=== PATIENT | female | born 1945 | race Caucasian/White ===

== ENCOUNTER 2017-07-09 23:39 | Inpatient (IN) ==
[2017-07-10 01:34] LABS: Basophils # 0.1 10*3/uL (0.0-0.2); Basophils % 0.4 % (0.0-0.8); Eosinophils % 0.1 % (0.00-10.9); Hematocrit 37.1 VOL% (35.7-47.0); Hemoglobin 12.9 GM/DL (12.0-16.0); Immature Granulocytes % 0.9 %; Immature Granulocytes Absolute 0.15 #; Lymphocytes # 1.2 10*3/uL (1.4-4.0); Lymphocytes % 7.8 % (21.3-54.2); Mean Corpuscular HGB Conc 34.8 GM/DL (32-36); Mean Corpuscular Hemoglobin 31 PG (27-34); Mean Corpuscular Volume 88.5 FL (87-102); Mean Platelet Volume 12.5 FL (9.6-12.0); Monocytes # 1.4 10*3/uL (0.11-0.8); Monocytes % 8.8 % (1.7-12.7); Neutrophils # 13.1 10*3/uL (1.4-7.4); Platelet Count 185 T/CUMM (130-400); Red Blood Count 4.19 MC/CUMM (3.8-5.5); Red Cell Distribution Width 13.3 % (9.3-17.3)
--- NOTE | 2017-07-10 01:52 | Emergency Department Note ---
Minor Reece Manpreet, am scribing for, and in the presence of, Vijay Contreras MD 01:20 . Diane Reece Hans, MD, personally performed the services described in this documentation, ascribed by Sae Gaxiola in my presence, and it is both accurate and complete . Arrival - Arrival ED Nursing Triage Note: C/O Neck pain radiating down right arm and into chest. Onset one week ago. Pt reports that she has also been running a fever off and on. Denies injury. Denies any other symptoms. Pt states that she has fibromyalgia. EKG was performed at time of triage. Mode of Arrival: Ambulatory Limitations: No Limitations Source: Patient - History of Present Illness Onset (ago): day(s) (Couple of days ago) Consistency: constant Severity: moderate Severity scale (1-10): 4 Quality: aching Date of Last Menstrual Period: Hysterectomy <Vijay Contreras - Last Filed: 07/10/17 01:52> <Shayan Graham - Last Filed: 07/10/17 04:33> - Arrival Chief Complaint: Neck Pain / Injury Stated Complaint: sob pain in neck and down arm Time Seen by Provider: 07/10/17 01:02 - History of Present Illness HPI Narrative: Pt is a 71 y/o female who presents to the ED with CC of right neck pain that radiates down into her chest and right arm that began a couple of days ago. Pt denies any falls or trauma but states the pain is worse on movement, swallowing , and touching. Pt also c/o wheezing. Pt denies any fever, Abd pain, or N/V/D, but states her Abd feels "tight" and a sore throat. No other pains/complaints to the ED. (Sae Gaxiola) Pt is a 71 y/o female who presents to the ED with CC of right neck pain that radiates down into her chest and right arm that began a couple of days ago. Pt denies any falls or trauma but states the pain is worse on movement, swallowing , and touching. Pt also c/o wheezing. Pt denies any fever, Abd pain, or N/V/D, but states her Abd feels "tight" and a sore throat. No other pains/complaints to the ED. (Vijay Contreras) Allergies/Adverse Reactions: Allergies Allergy/AdvReac Type Severity Reaction Status Date / Time Sulfa (Sulfonamide AdvReac Joint Pain Verified 07/19/15 09:39 Antibiotics) Home Medications: Home Medications Medication Instructions Recorded Confirmed Type Amlodipine Besylate 5 mg PO DAILY 06/30/15 07/09/17 History Estradiol [Vagifem] 10 mcg VAG DIRECTED 06/30/15 07/09/17 History Levothyroxine Tab [Synthroid Tab] 75 mcg PO DAILY@0700 06/30/15 07/09/17 History Nortriptyline HCl 10 mg PO DAILY 06/30/15 07/09/17 History SUMAtriptan TAB [Imitrex Tab] 100 mg PO DIRECTED 06/30/15 07/09/17 History Tolterodine LA [Detrol LA] 4 mg PO DAILY 06/30/15 07/09/17 History DULoxetine [Cymbalta] 30 mg PO QPM 07/09/17 07/09/17 History Duloxetine HCl [Cymbalta] 60 mg PO QAM 07/09/17 07/09/17 History Gabapentin Cap/Tab [Neurontin 600 mg PO DAILY 07/09/17 07/09/17 History Cap/Tab] Review of System - Review of System 12 point system: reviewed and no additional remarkable complaints except as stated - Review of System Constitutional: Absent: chills, diaphoresis, fever Head/Ears/Nose/Throat: Present: sore throat Respiratory: Present: wheezing. Absent: cough, respiratory distress Cardiovascular: Present: chest pain. Absent: palpitations, dyspnea on exertion Gastrointestinal: Absent: abdominal pain, nausea, vomiting, diarrhea Genitourinary female: Absent: dysuria Musculoskeletal: Present: neck pain (Right Neck pain). Absent: arm pain, back pain Neurological: Absent: headache, weakness, numbness, paresthesias <Vijay Contreras - Last Filed: 07/10/17 01:52> Medical,Surgical,& Family Hx - Medical History Cardio: History of: Hypertension Endocrine: History of: Thyroid Disorder No history of: Diabetes Mellitus (IDDM), Diabetes Mellitus (NIDDM) Respiratory: No history of: Asthma, Bronchitis, COPD Renal: No history of: Renal Failure, Renal Problems Gastrointestinal: History of: GI Problems (irritable bowel syndrome) No history of: Gastrointestinal Bleed, Liver Problems Musculoskeletal: History of: Back/Neck Problems, Herniated Disk - Social History Smoking Status: Never smoker Frequency of Alcohol Use: None Type of Drug Use: None <DianeVijay - Last Filed: 07/10/17 01:52> Exam - General General appearance: alert, in no apparent distress - Head Head exam: Present: atraumatic, normocephalic, normal inspection - Eye Eye exam: Present: normal appearance, PERRL, EOMI - ENT ENT exam: Present: normal exam, normal oropharynx, mucous membranes moist - Neck Neck exam: Present: full ROM, trachea midline, tenderness (Right neck tenderness ). Absent: normal inspection - Chest Chest inspection: Present: symmetric chest wall rise, tenderness (Right chest wall tenderness). Absent: normal inspection - Respiratory Respiratory exam: Present: normal lung sounds bilaterally. Absent: respiratory distress - Cardiovascular Cardiovascular exam: Present: regular rate, normal rhythm, normal heart sounds. Absent: murmur, rubs, gallop - Abdominal Exam Abdominal exam: Present: soft, normal bowel sounds - Extremities Exam Extremities exam: Present: normal inspection, full ROM. Absent: tenderness - Back Exam Back exam: Present: normal inspection, full ROM. Absent: tenderness - Neurological Exam Neurological exam: Present: alert, oriented X3, CN II-XII intact, reflexes normal - Psychiatric Psychiatric exam: Present: normal affect, normal mood - Skin Skin exam: Present: warm, dry, intact, normal color. Absent: pallor <DianeVijay - Last Filed: 07/10/17 01:52> Vital Signs: Vital Signs Temperature 98.7 F 07/10/17 00:40 Pulse Rate 62 07/10/17 01:51 Respiratory Rate 18 07/10/17 01:51 Blood Pressure 142/78 07/10/17 01:51 O2 Sat by Pulse Oximetry 98 07/10/17 01:51 Course <Vijay Contreras - Last Filed: 07/10/17 01:52> <Shayan Graham - Last Filed: 07/10/17 04:33> Course Narrative: The patient has a history of fever and has an elevated white blood cell count plus elevated inflammatory markers. CT scan shows inflammation of the right sternoclavicular joint which is tracking up the right side of the neck along the internal jugular vein and down into the chest and mediastinum along the subclavian vein. Therefore it seems reasonable that the patient should be admitted to the hospital for intravenous antibiotics orthopedic consultation to obtain a sample of the infection involving the sternoclavicular joint on the right side and infectious disease consultation for the appropriate antibiotic choice. (Shayan Graham) Results - Labs CBC & BMP: 07/10/17 01:13 Lab Results: I have reviewed the patients labs <Vijay Contreras - Last Filed: 07/10/17 01:52> - Labs CBC & BMP: 07/10/17 01:13 07/10/17 01:13 <Shayan Graham - Last Filed: 07/10/17 04:33> - Labs Labs: Laboratory Tests 07/10/17 01:13 WBC 16.0 H RBC 4.19 Hgb 12.9 Hct 37.1 MCV 88.5 MCH 31 MCHC 34.8 RDW 13.3 Plt Count 185 MPV 12.5 H Neut % (Auto) 82.0 H Lymph % (Auto) 7.8 L [place] % (Auto) 8.8 Eos % (Auto) 0.1 Baso % (Auto) 0.4 Neut # (Auto) 13.1 H Lymph # (Auto) 1.2 L [place] # (Auto) 1.4 H Eos # (Auto) 0.0 Baso # (Auto) 0.1 Immature Gran % 0.9 Nucleated RBC % 0.0 Immature Gran # 0.15 Nucleated RBCs # 0.00 Immature Plt Fraction 0.0 (Sae Gaxiola) Laboratory Tests 07/10/17 01:13 WBC 16.0 H RBC 4.19 Hgb 12.9 Hct 37.1 MCV 88.5 MCH 31 MCHC 34.8 RDW 13.3 Plt Count 185 MPV 12.5 H Neut % (Auto) 82.0 H Lymph % (Auto) 7.8 L [place] % (Auto) 8.8 Eos % (Auto) 0.1 Baso % (Auto) 0.4 Neut # (Auto) 13.1 H Lymph # (Auto) 1.2 L [place] # (Auto) 1.4 H Eos # (Auto) 0.0 Baso # (Auto) 0.1 Immature Gran % 0.9 Nucleated RBC % 0.0 Immature Gran # 0.15 Nucleated RBCs # 0.00 Immature Plt Fraction 0.0 (Vijay Contreras) Disposition <SamanthakrisVijay - Last Filed: 07/10/17 01:52> <Shayan Graham - Last Filed: 07/10/17 04:33> Clinical Impression: Septic arthritis of right sternoclavicular joint Disposition: Still a Patient Additional Instructions: The patient has a history of fever and has an elevated white blood cell count plus elevated inflammatory markers. CT scan shows inflammation of the right sternoclavicular joint which is tracking up the right side of the neck along the internal jugular vein and down into the chest and mediastinum along the subclavian vein. Therefore it seems reasonable that the patient should be admitted to the hospital for intravenous antibiotics orthopedic consultation to obtain a sample of the infection involving the sternoclavicular joint on the right side and infectious disease consultation for the appropriate antibiotic choice.
[2017-07-10 01:56] LABS: Blood Urea Nitrogen 14 MG/DL (7-18); Calcium 8.8 MG/DL (8.5-10.1); Glucose 114 MG/DL (74-106); Magnesium 2.3 MG/DL (1.8-2.4); Osmolality,Calculated 278.5 MOS/KG (273-304); Potassium 3.7 MMOL/L (3.5-5.1); Sodium 139 MMOL/L (136-145); Troponin I Only < 0.015 NG/ML (0.00-0.045)
[2017-07-10] MEDS ORDERED: MORPHINE 2 MG/1 ML SYRINGE IV STA (02:01)
[2017-07-10] MEDS ORDERED: KETOROLAC 30 MG/1 ML VIAL IV STA (02:01)
[2017-07-10] MEDS ORDERED: ONDANSETRON 4 MG/2 ML VIAL IV STA (02:01)
[2017-07-10] MEDS ORDERED: ONDANSETRON 4 MG/2 ML VIAL ONE (02:11)
[2017-07-10] MEDS ORDERED: KETOROLAC 30 MG/1 ML VIAL ONE (02:11)
[2017-07-10] MEDS ORDERED: MORPHINE 2 MG/1 ML SYRINGE ONE (02:11)
[2017-07-10] MEDS ORDERED: PIPERACILLIN/TAZOBACTAM 3,375 MG in SODIUM CHLORIDE 0.9% 100 ML IV STA (03:45)
[2017-07-10] MEDS ORDERED: VANCOMYCIN INJ 1,000 MG in SODIUM CHLORIDE 0.9% 250 ML IV STA (03:45)
[2017-07-10] MEDS ORDERED: PIPERACILLIN/TAZOBACTAM 3,375 MG VIAL IV ONE (03:49)
[2017-07-10] MEDS ORDERED: VANCOMYCIN 1,000 MG VIAL ONE (03:49)
--- NOTE | 2017-07-10 06:17 | Hospitalist History & Physical ---
History of Present Illness Chief complaint: right sided neck pain and arm pain History of present illness: Ms. Alvarez is a 71 year old female who presents with 3 days of right sided sharp neck pain with radiations to her right scapular area, right side of chest , and right arm. Pain is intermittent and occurs with movement. She notes some SOB/wheezing/non productive cough/fevers but no chills. Fever reported up to 100.9. Grandchildren have runny nose but nothing out of the ordinary. She has been having pain and difficulty swallowing since this timeframe as well. Odynophagia can occur with saliva/food/liquids. She denies any drooling. She further denies any abdominal pain/n,v/diarrhea. CTA chest showed findings suggestive of inflammatory or septic arthritis of the bilateral sternoclavicular joints, R>L. She denies any recent trauma or injury. She has not had these type of symptoms before. While in the ER, she was started on antibiotics. Home Medications Medication Instructions Recorded Confirmed Type Amlodipine Besylate 5 mg PO DAILY 06/30/15 07/09/17 History Estradiol [Vagifem] 10 mcg VAG DIRECTED 06/30/15 07/09/17 History Levothyroxine Tab [Synthroid Tab] 75 mcg PO DAILY@0700 06/30/15 07/09/17 History Nortriptyline HCl 10 mg PO DAILY 06/30/15 07/09/17 History SUMAtriptan TAB [Imitrex Tab] 100 mg PO DIRECTED 06/30/15 07/09/17 History Tolterodine LA [Detrol LA] 4 mg PO DAILY 06/30/15 07/09/17 History DULoxetine [Cymbalta] 30 mg PO QPM 07/09/17 07/09/17 History Duloxetine HCl [Cymbalta] 60 mg PO QAM 07/09/17 07/09/17 History Gabapentin Cap/Tab [Neurontin 600 mg PO DAILY 07/09/17 07/09/17 History Cap/Tab] Allergies Allergy/AdvReac Type Severity Reaction Status Date / Time Sulfa (Sulfonamide AdvReac Joint Pain Verified 07/19/15 09:39 Antibiotics) Medical,Surgical,& Family Hx - Medical History Cardio: History of: Hypertension Endocrine: History of: Thyroid Disorder No history of: Diabetes Mellitus (IDDM), Diabetes Mellitus (NIDDM) Respiratory: No history of: Asthma, Bronchitis, COPD Renal: No history of: Renal Failure, Renal Problems Gastrointestinal: History of: GI Problems (irritable bowel syndrome) No history of: Gastrointestinal Bleed, Liver Problems Musculoskeletal: History of: Back/Neck Problems, Herniated Disk - Social History Smoking Status: Never smoker Frequency of Alcohol Use: None Type of Drug Use: None 12 point system: reviewed and no additional remarkable complaints except as stated Exam - Constitutional Vitals: Period Temp Pulse Resp BP Sys/Douglas Pulse Ox Last 24 Hr 98.7 F-98.7 F 62-81 14-20 92-142/41-78 96-98 General appearance: normal weight, no acute distress - Head Head exam: Present: normal inspection, normocephalic - Eye Eye exam: Present: EOMI Pupils: Present: BRITTNEY - ENT ENT exam: Present: normal oropharynx (no tonsillar exudate; slight erythema of posterior oropharyngeal wall), other (right sided neck swelling and tenderness, normal ROM of neck but pain with movement) - Respiratory Respiratory exam: Present: clear to auscultation bilaterally, chest wall tenderness (right sided chest wall tenderness; no crepitus; no rash). Absent: rales, rhonchi, wheezes - Cardiovascular Cardiovascular exam: Present: regular rate and rhythm - GI/Abdominal GI/Abdominal exam: Present: normal bowel sounds, soft. Absent: tenderness - Extremities Exam Extremities exam: Present: other (normal ROM of UE; tenderness at GH joint and deltoid area of RUE). Absent: edema - Neurological Exam Neurological exam: Present: alert, oriented X3 - Psychiatric Psychiatric exam: Present: normal affect, normal mood - Skin Skin exam: Present: normal color, warm Results - Labs CBC & BMP: 07/10/17 01:13 07/10/17 01:13 - EKG EKG results: sinus rhythm (bigeminy) - Impressions Patient is a 71 yo female who presents with acute neck and chest pain was found to have inflammatory vs septic arthritis of sternoclavicular joints. Active Issues: 1. Arthropathy of sternoclavicular joint, infectious vs inflammatory 2. Possible Mediastinitis 3. RLL pneumonia 4. Dysphagia/odynophagia 5. Leukocytosis 6. Comorbid conditions: history of fibromyalgia, urge incontinence, hypothyroidism, postmenopausal, HTN home medications reconciled Plan: admit; continue zosyn and vancomycin; consult ID/ortho/GI. Check for strep /flu. Monitor wbc. check lactic acid/anti-ccp, rheumatoid factor. Add nebs. Provide pain control. IVFs. Check TSH. Continue home medications as appropriate. DVT prophylaxis. The plan of care may be modified as more information becomes available. - Diagnostic Findings Procedure: CT - chest: report reviewed by me (no PE; periarticular soft tissue swelling, inflammation and mild fluid along the bilateral sternoclavicular joints, right greater than left suggestive of inflammatory or septic arthritis. Mild fat stranding along the right thoracic inlet; right superior mediastinum and retrosternal fat suggesting possible developing mediastinitis. RLL pneumonia vs atelectasis. )
[2017-07-10] MEDS ORDERED: ALBUTEROL/IPRATROPIUM 3 ML NEB RESP TX PRN (06:45)
--- NOTE | 2017-07-10 06:57 | EKG Report ---
Stationary ECG Study [facility] ER Test Date: 07/10/2017 1:36:46 AM Pat Name: GENO GARAY Department: Room: Gender: F [employer]: : 1945 Requested by: Vijay Contreras Order Number: [id number] Reading MD: DAYANARA HERNANDEZ Intervals [place] Rate: 82 P: 68 NE: 154 QRS: -8 QRSD: 112 T: 78 QT: 368 QTc: 406 Interpretive Statements SINUS RHYTHM WITH FREQUENT VENTRICULAR PREMATURE COMPLEXES INDETERMINATE AXIS Electronically Signed On 07-10-17 16:01:29 CDT by DAYANARA HERNANDEZ [email or web address]
[2017-07-10] MEDS ORDERED: SODIUM CHLORIDE 0.9% 1,000 ML IV SCH (07:00)
--- NOTE | 2017-07-10 09:15 | Orthopedic Consult Note ---
History of Present Illness Chief complaint: right clavicle and neck pain History of present illness: Ms. Alvarez is a 71 year old female who presented to the ER with complaints of right neck and shoulder pain. She is a decreased range of motion of her neck. Complains of pain to her medial aspect of her shoulder only with range of motion. Denies any numbness or tingling. Denies any injuries. Denies any recent illnesses. No other complaints. Home Medications Medication Instructions Recorded Confirmed Type Amlodipine Besylate 5 mg PO BEDTIME 06/30/15 07/10/17 History Estradiol [Vagifem] 10 mcg VAG DIRECTED 06/30/15 07/10/17 History Levothyroxine Tab [Synthroid Tab] 75 mcg PO DAILY@0700 06/30/15 07/10/17 History Nortriptyline HCl 10 mg PO BEDTIME 06/30/15 07/10/17 History SUMAtriptan TAB [Imitrex Tab] 100 mg PO DIRECTED 06/30/15 07/10/17 History Tolterodine LA [Detrol LA] 4 mg PO BEDTIME 06/30/15 07/10/17 History DULoxetine [Cymbalta] 30 mg PO DAILY 07/09/17 07/10/17 History Duloxetine HCl [Cymbalta] 60 mg PO QAM 07/09/17 07/10/17 History Gabapentin Cap/Tab [Neurontin 600 mg PO BEDTIME 07/09/17 07/10/17 History Cap/Tab] Allergies Allergy/AdvReac Type Severity Reaction Status Date / Time Sulfa (Sulfonamide AdvReac Joint Pain Verified 07/19/15 09:39 Antibiotics) 12 point system: reviewed and no additional remarkable complaints except as stated - Constitutional Constitutional: Present: as per HPI Medical,Surgical,& Family Hx - Medical History Cardio: History of: Hypertension Endocrine: History of: Thyroid Disorder No history of: Diabetes Mellitus (IDDM), Diabetes Mellitus (NIDDM) Respiratory: No history of: Asthma, Bronchitis, COPD Renal: No history of: Renal Failure, Renal Problems Gastrointestinal: History of: GI Problems (irritable bowel syndrome) No history of: Gastrointestinal Bleed, Liver Problems Musculoskeletal: History of: Back/Neck Problems, Herniated Disk - Family History Family History: Reports;: Family Cancer (grandmother), Family Hypertension ( father), Family Stroke (mother) - Social History Smoking Status: Never smoker Frequency of Alcohol Use: None Type of Drug Use: None Exam - Constitutional Vitals: Period Temp Pulse Resp BP Sys/Douglas Pulse Ox Last 24 Hr 98.7 F-98.7 F 62-81 14-20 91-142/41-78 94-98 General appearance: normal weight, no acute distress - Head Head exam: Present: normal inspection - Eye Eye exam: Present: EOMI Pupils: Present: BRITTNEY - ENT ENT exam: Present: normal exam - Neck Neck exam: Present: normal inspection (Tender to palpation along the right side of the anterior neck. Mild pain with passive range of motion) - Respiratory Respiratory exam: Absent: accessory muscle use, wheezes - Cardiovascular Cardiovascular exam: Present: regular rate and rhythm - GI/Abdominal GI/Abdominal exam: Absent: distended, firm - Extremities Exam Extremities exam: Present: normal inspection - Expanded Right Upper Extremity General: Present: normal inspection (Right shoulder: Good active range of motion. Pain to sternoclavicular joint with crossarm test. Compartments are soft. Sensation is intact. Pulses 2+. Mild swelling of the right sternoclavicular joint mild increased warmth over this area) Left Upper Extremity General: Present: normal inspection (Minimal tenderness to the left sternoclavicular joint. Minimal pain with crossarm test. Otherwise full active range of motion. Compartments soft. Sensation is intact. Pulses 2+.) - Neurological Exam Neurological exam: Present: alert, oriented X3, CN II-XII intact - Psychiatric Psychiatric exam: Present: normal affect, normal mood - Skin Skin exam: Present: normal color, intact Results - Labs CBC & BMP: 07/10/17 01:13 07/10/17 01:13 Lab Results: I have reviewed the past 24 hour labs - Diagnostic Findings Procedure: CT - chest: image reviewed by me, CT: image reviewed by me Assessment and Plan (1) Septic arthritis of right sternoclavicular joint Status: Acute Assessment and plan: Discussed her CT findings and physical exam concerning for inflammation of her right sternal clavicular joint. Discussed the possibility of this being infectious or inflammatory in etiology. Recommend further workup with interventional radiology guided aspiration of the right sternal clavicular joint to further evaluate the source for her pain and swelling. Discussed that if she were need to undergo surgical intervention, it would most likely need to be done with a combination of general surgeon and orthopedic surgeon Continue current treatment as per medicine with antibiotics and pain medicine as appropriate We will continue to follow Current Visit: Yes
[2017-07-10] MEDS: TOLTERODINE LA 4 MG CAPSULE PO SCH (10:11)
[2017-07-10] MEDS: GABAPENTIN 600 MG TABLET PO SCH (10:12)
[2017-07-10] MEDS: NORTRIPTYLINE 10 MG CAPSULE PO SCH (10:13)
[2017-07-10] MEDS: LEVOTHYROXINE 75 MCG TABLET PO SCH (10:13)
[2017-07-10] MEDS: ENOXAPARIN 40 MG/0.4 ML SYRINGE SUBCUT SCH (10:14)
--- NOTE | 2017-07-10 10:28 | CT Report ---
Exam: CT neck with IV contrast Exam date: July 10, 2017 Clinical History: 71-year-old female with neck and throat pain Technique: Axial computed tomography images of the neck with intravenous contrast. The CT exam was performed using one or more of the following dose reduction techniques: Automated exposure control, adjustment of the mA and/or kV according to patient size, or use of iterative reconstruction technique. Contrast: 80 mL of Omnipaque 350 administered intravenously Comparison: No relevant prior studies available Findings: Nasopharynx: Unremarkable Oropharynx: Unremarkable. No significant tonsillar enlargement. No peritonsillar abscess Hypopharynx: Partial effacement of the right piriform recess Larynx: Unremarkable. Normal epiglottis Trachea: Unremarkable Retropharyngeal space: Unremarkable Submandibular/parotid glands: Unremarkable. Normal in size, symmetry and enhancement Thyroid: Unremarkable Bone/joints: Cervical spondylosis Soft tissues: Periarticular soft tissue swelling, inflammation and small fluid along the bilateral sternoclavicular joints, right greater than left. Mild soft tissue swelling extending into the lower right neck and right thoracic inlet Vasculature: Unremarkable Lymph nodes: No enlarged lymph nodes Lung apices: Mild biapical fibrosis Impression: 1. Inflammatory changes involving the bilateral sternoclavicular joints, right greater than left. Differential considerations would include inflammatory versus septic arthritis. Correlate clinically PROCEDURE INTERPRETED AT [facility] [place] DEPARTMENT OF RADIOLOGY Final Report Signed by: Luis Carlos Haq
--- NOTE | 2017-07-10 10:35 | CT Report ---
Exam: CT angiography chest without and with intravenous contrast Exam date: July 10, 2017 at 0221 hours Clinical History: 71-year-old female, chest pain, not specified Technique: Axial computed tomographic angiography images of the chest without and with intravenous contrast using pulmonary embolism protocol. The CT exam was performed using one or more of the following dose reduction techniques: Automated exposure control, adjustment of the mA and/or kV according to patient size, or use of iterative reconstruction technique. Contrast: 80 mL of Omnipaque 350 administered intravenously Comparison: No relevant comparison studies available Findings: Pulmonary arteries: No vascular intraluminal filling defects to suggest pulmonary embolism Aorta: No dissection or thoracic aortic aneurysm Lungs: Subtle right lower lobe pneumonia versus atelectasis. Mild biapical scarring. Right middle lobe granuloma Pleural spaces: Trace right pleural effusion. No pneumothorax Heart: Heart size is normal Mediastinum: Mild fat stranding along the right thoracic inlet, right superior mediastinum and retrosternal fat suggesting underlying mediastinitis Bones/joints: Mild thoracic kyphosis with spondylosis throughout the spinal axis. No acute fracture. No dislocation. Soft tissues: Periarticular soft tissues swelling with inflammation and trace fluid involving the bilateral sternoclavicular joints, right greater than left. Stranding extends into the upper anterior chest and within the lower right neck. Lymph nodes: No enlarged lymph nodes Impression: 1. No evidence of pulmonary embolism 2. Periarticular inflammatory changes involving the sternoclavicular joints bilaterally, right greater than left suggesting inflammatory or septic arthrosis 3. Findings to suggest developing mediastinitis 4. Right lower lobe atelectasis versus early infectious process 5. Trace right pleural effusion PROCEDURE INTERPRETED AT [facility] DEPARTMENT OF RADIOLOGY Final Report Signed by: Luis Carlos Haq
--- NOTE | 2017-07-10 10:58 | XRay Report ---
2 view chest July at 0132 hours Indication: Shortness of breath Comparison: None available Findings: Cardiomediastinal contours are normal. Lungs are clear bilaterally. No acute osseous abnormalities. Visualized upper abdomen demonstrates no acute pathology. Impression: Normal chest PROCEDURE INTERPRETED AT [facility] DEPARTMENT OF RADIOLOGY Final Report Signed by: Luis Carlos Haq
--- NOTE | 2017-07-10 11:20 | Gastrointestinal Consult Note ---
Assessment and Plan - Time spent with patient Time spent with patient: Greater than 30 minutes (1) Odynophagia Status: Acute Current Visit: Yes (2) Septic arthritis of right sternoclavicular joint Status: Acute Assessment and plan: PLEASE NOTE -- automatic citation of patient information is unavoidable in this electronic note. I have made a reasonable effort to review the information cited , but it is not a part of my evaluation, impression, or recommendation unless specifically discussed in the dictated text that follows. As well, voice recognition software was used in the creation of this clinical note. Reasonable effort was made to identify and correct gross errors. Despite proofreading, errors in charging manipulator may be present, including nonsense verbiage at times. If you encounter such an error, please contact me at for discussion and correction. -- Dr. Pruett Chief complaint/Consult Question: Odynophagia Consult requested by: Juan F History of present illness: This is a new patient, a 71-year-old woman with underlying spinal stenosis and fibromyalgia, not on any immunosuppressants, presenting with right neck pain. Patient states she initially had some tenderness of the tailbone, developed sinus congestion, and developed a sore throat on the right side of the neck with painful swallowing. Symptoms progressed to include pain on bilateral sides of the clavicle, radiating to the central anterior chest, and developed into audible wheezing, with progressively worsening shortness of breath, associated with mild cough. This is also associated with current pill dysphasia. Patient denies any prior dysphasia, odynophagia, immunosuppressant medications, immunocompromise state. Denies any family history of autoimmune diseases. Grandmother with stomach cancer late 60s. Sister with melanoma at age 69. Denies oral ulcerations or pain in the mouth. She has had no other recent infections, has had 3 surgeries to her low back and neck over the last 2 years, but states that they were laser surgeries where they broke the skin, but otherwise not tissue planes without hardware. GI review of systems included: heartburn, regurgitation, early satiety, dysphagia, odynophagia, abdominal pain, nausea, vomiting, hematemesis, weight loss, weight gain, fever, chills, fatigue, decreased appetite, diarrhea, constipation, hematochezia, melena, bloating, malodorous flatus, anal pain, or NSAID use, and was negative except as noted above. REVIEW OF SYSTEMS: Complete other review of systems negative except as noted in the HPI. Outpatient medications: Personally reviewed Cymbalta twice daily, Neurontin, nortriptyline, levothyroxine, Detrol LA, amlodipine Inpatient medications: Reviewed Past Medical History: Reviewed Social history: Negative tobacco. Negative alcohol Family history: Grandmother with stomach cancer in late 60s, sister with melanoma age 69 PHYSICAL EXAMINATION: CONSTITUTIONAL: Vital signs reviewed as documented above. In no acute distress. Nontoxic-appearing. EYES: Anicteric conjunctiva. Extra-ocular movements are intact and symmetric. EARS: Able to hear speech at conversational volume level, no external trauma/ masses. MOUTH: No oral/mouth lesions or ulcers. NECK: Right anterior and lateral neck very tender to palpation, shotty lymphadenopathyincluding the anterior and posterior cervical chain on the right side, sensation of engorgement or swelling, without overlying cellulitis or discrete masses. Thyroid is of normal size and symmetric. HEART: Regular rate, regular rhythm LUNGS:. No increased work of breathing or accessory muscle use. GI/ABDOMEN: Nonobese abdomen, soft, nontender to palpation, no rebound tenderness, nondistended, no rigidity. No palpable mass. No appreciable hepatosplenomegaly. SKIN: No rash on face, arms, or hands. No palpable lesions MUSCULOSKELETAL: Normal gait. Muscle tone appears normal without any abnormal movements. PSYCH: Normal affect. Alert and oriented to person, place, and time. Laboratory: Personally reviewed CBC with WBC 16, hemoglobin 12.9, platelets 185 Chemistry within normal limits Troponin negative CRP significantly elevated at 25 Radiology: Personally reviewed reports CT chest from 07/10/17. Significant for periarticular inflammatory changes involving the sternoclavicular joints bilaterally, right greater than left suggesting inflammatory or septic arthrosis. Findings suggestive of developing mediastinitis. Right lower lobe atelectasis from his early infectious process. Trace right pleural effusion. CT neck from 07/10/2017inflammatory changes involving the bilateral sternoclavicular joints right greater than left as seen on CT. Mild soft tissue swelling extending into the lower right neck and right thoracic inlet. Procedurespatient reports prior EGD approximately 15-20 years ago with hiatal hernia Colonoscopy reported 4 years ago, was told to repeat in 5 years Assessments: #Septic versus inflammatory arthrosis of the sternoclavicular joints with findings of inflammation versus infection in the right neck as well #odynophagia with pill dysphagia: Acute. Most likely related to infectious versus inflammatory findings as noted above. No indication that this is related to chronic or underlying esophageal disorder. #Other specified counseling -- The patient was seen for greater than 30 minutes. The patient was counseled for greater than 50% of this time regarding differential diagnosis, likely diagnosis, diagnostic and therapeutic alternatives, risks/benefits/alternatives of medications and procedures, and plan of care generally. The patient expressed understanding and wishes to proceed. Recommendations: -HIV-ordered -If patient has persistent dysphasia or odynophagia after current issues treated , recommend outpatient referral for EGD GI has no further recommendations at this time, and will sign off. Please call with further questions. Keira Pruett MD, MPH STAFF [employer] Current Visit: Yes History of Present Illness History of present illness: Ms. Alvarez is a 71 year old female Home Medications Medication Instructions Recorded Confirmed Type Amlodipine Besylate 5 mg PO BEDTIME 06/30/15 07/10/17 History Estradiol [Vagifem] 10 mcg VAG DIRECTED 06/30/15 07/10/17 History Levothyroxine Tab [Synthroid Tab] 75 mcg PO DAILY@0700 06/30/15 07/10/17 History Nortriptyline HCl 10 mg PO BEDTIME 06/30/15 07/10/17 History SUMAtriptan TAB [Imitrex Tab] 100 mg PO DIRECTED 06/30/15 07/10/17 History Tolterodine LA [Detrol LA] 4 mg PO BEDTIME 06/30/15 07/10/17 History DULoxetine [Cymbalta] 30 mg PO DAILY 07/09/17 07/10/17 History Duloxetine HCl [Cymbalta] 60 mg PO QAM 07/09/17 07/10/17 History Gabapentin Cap/Tab [Neurontin 600 mg PO BEDTIME 07/09/17 07/10/17 History Cap/Tab] Allergies Allergy/AdvReac Type Severity Reaction Status Date / Time Sulfa (Sulfonamide AdvReac Joint Pain Verified 07/19/15 09:39 Antibiotics) Medical,Surgical,& Family Hx - Medical History Cardio: History of: Hypertension Endocrine: History of: Thyroid Disorder No history of: Diabetes Mellitus (IDDM), Diabetes Mellitus (NIDDM) Respiratory: No history of: Asthma, Bronchitis, COPD Renal: No history of: Renal Failure, Renal Problems Gastrointestinal: History of: GI Problems (irritable bowel syndrome) No history of: Gastrointestinal Bleed, Liver Problems Musculoskeletal: History of: Back/Neck Problems, Herniated Disk - Family History Family History: Reports;: Family Cancer (grandmother), Family Hypertension ( father), Family Stroke (mother) - Social History Smoking Status: Never smoker Frequency of Alcohol Use: None Type of Drug Use: None Exam - Constitutional Vitals: Period Temp Pulse Resp BP Sys/Douglas Pulse Ox Last 24 Hr 98.6 F-98.7 F 62-82 14-20 91-157/41-92 94-98 Results - Labs CBC & BMP: 07/10/17 01:13 07/10/17 01:13
--- NOTE | 2017-07-10 11:49 | Event Note ---
Pt was seen and examined by me. Agree with plan as delinated in H and P. F/U analysis consultant recs. Add Magic mouthwash swish and spit as needed. D/W pt and . All questions answered.
[2017-07-10] MEDS ORDERED: MYLANTA/LIDO VISC/NYST 180 ML BOTTLE SWISH/SPIT PRN (12:40)
--- NOTE | 2017-07-10 13:48 | EKG Report ---
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
[2017-07-10] MEDS: PIPERACILLIN/TAZOBACTAM 3,375 MG in SODIUM CHLORIDE 0.9% 100 ML IV SCH ×2 (15:43→21:54)
[2017-07-10] MEDS: MORPHINE 2 MG/1 ML SYRINGE IV PRN (17:19)
[2017-07-10] MEDS ORDERED: DULoxetine 30 MG CAPSULE PO SCH (19:00)
[2017-07-10] MEDS: VANCOMYCIN INJ 1,000 MG in SODIUM CHLORIDE 0.9% 250 ML IV SCH (19:38)
[2017-07-10] MEDS: DULoxetine 30 MG CAPSULE PO SCH (21:18)
[2017-07-11] MEDS ORDERED: SODIUM CHLORIDE 0.9% 250 ML IV ONE (03:17)
[2017-07-11] MEDS: VANCOMYCIN INJ 1,000 MG in SODIUM CHLORIDE 0.9% 250 ML IV SCH ×2 (04:01→16:47)
[2017-07-11 04:32] LABS: Basophils % 0.4 % (0.0-0.8); Eosinophils % 0.1 % (0.00-10.9); Hematocrit 33.6 VOL% (35.7-47.0); Hemoglobin 11.1 GM/DL (12.0-16.0); Immature Granulocytes % 0.6 %; Immature Granulocytes Absolute 0.06 #; Lymphocytes # 0.9 10*3/uL (1.4-4.0); Lymphocytes % 9.4 % (21.3-54.2); Mean Corpuscular Hemoglobin 30 PG (27-34); Mean Corpuscular Volume 89.6 FL (87-102); Mean Platelet Volume 12.5 FL (9.6-12.0); Monocytes % 10.7 % (1.7-12.7); Neutrophils # 7.6 10*3/uL (1.4-7.4); Neutrophils % 78.8 % (38.7-73.9); Platelet Count 191 T/CUMM (130-400); Red Blood Count 3.75 MC/CUMM (3.8-5.5); Red Cell Distribution Width 13.5 % (9.3-17.3); White Blood Count 9.6 T/CUMM (4-12)
[2017-07-11 05:08] LABS: Blood Urea Nitrogen 11 MG/DL (7-18); Calcium 7.7 MG/DL (8.5-10.1); Glucose 104 MG/DL (74-106); Magnesium 2.2 MG/DL (1.8-2.4); Osmolality,Calculated 279.3 MOS/KG (273-304); Rheumatoid Factor < 15 IU/ML (<15); Sodium 141 MMOL/L (136-145)
[2017-07-11] MEDS: PIPERACILLIN/TAZOBACTAM 3,375 MG in SODIUM CHLORIDE 0.9% 100 ML IV SCH ×3 (06:15→20:25)
[2017-07-11] MEDS: LEVOTHYROXINE 75 MCG TABLET PO SCH (06:31)
[2017-07-11 07:30] LABS: HIV Antigen/Antibody Result Nonreactive (Nonreactive)
[2017-07-11] MEDS: GABAPENTIN 600 MG TABLET PO SCH (08:47)
[2017-07-11] MEDS: ENOXAPARIN 40 MG/0.4 ML SYRINGE SUBCUT SCH (08:47)
[2017-07-11] MEDS: TOLTERODINE LA 4 MG CAPSULE PO SCH (08:47)
[2017-07-11] MEDS: NORTRIPTYLINE 10 MG CAPSULE PO SCH (08:48)
--- NOTE | 2017-07-11 12:56 | Orthopedic Consult Note ---
History of Present Illness Chief complaint: feeling better today History of present illness: Ms. Alvarez is a 71 year old female admitted for concern of septic arthropathy of her right greater than left sternoclavicular joint with swelling and her right-sided neck. She states that she feels better today and has better range of motion of her shoulder. is in the room at bedside. Also states that she had lower back pain a couple of weeks ago but that it has resolved Home Medications Medication Instructions Recorded Confirmed Type Amlodipine Besylate 5 mg PO BEDTIME 06/30/15 07/10/17 History Estradiol [Vagifem] 10 mcg VAG DIRECTED 06/30/15 07/10/17 History Levothyroxine Tab [Synthroid Tab] 75 mcg PO DAILY@0700 06/30/15 07/10/17 History Nortriptyline HCl 10 mg PO BEDTIME 06/30/15 07/10/17 History SUMAtriptan TAB [Imitrex Tab] 100 mg PO DIRECTED 06/30/15 07/10/17 History Tolterodine LA [Detrol LA] 4 mg PO BEDTIME 06/30/15 07/10/17 History DULoxetine [Cymbalta] 30 mg PO DAILY 07/09/17 07/10/17 History Duloxetine HCl [Cymbalta] 60 mg PO QAM 07/09/17 07/10/17 History Gabapentin Cap/Tab [Neurontin 600 mg PO BEDTIME 07/09/17 07/10/17 History Cap/Tab] Allergies Allergy/AdvReac Type Severity Reaction Status Date / Time Sulfa (Sulfonamide AdvReac Joint Pain Verified 07/19/15 09:39 Antibiotics) 12 point system: reviewed and no additional remarkable complaints except as stated Medical,Surgical,& Family Hx - Medical History Cardio: History of: Hypertension Endocrine: History of: Thyroid Disorder No history of: Diabetes Mellitus (IDDM), Diabetes Mellitus (NIDDM) Respiratory: No history of: Asthma, Bronchitis, COPD Renal: No history of: Renal Failure, Renal Problems Gastrointestinal: History of: GI Problems (irritable bowel syndrome) No history of: Gastrointestinal Bleed, Liver Problems Musculoskeletal: History of: Back/Neck Problems, Herniated Disk - Family History Family History: Reports;: Family Cancer (grandmother), Family Hypertension ( father), Family Stroke (mother) - Social History Smoking Status: Never smoker Frequency of Alcohol Use: None Type of Drug Use: None Exam - Constitutional Vitals: Period Temp Pulse Resp BP Sys/Douglas Pulse Ox Last 24 Hr 97.0 F-98.7 F 56-86 18-22 109-135/58-63 20-98 - Head Head exam: Present: normal inspection, normocephalic, atraumatic - Eye Eye exam: Present: EOMI Pupils: Present: BRITTNEY - ENT ENT exam: Present: normal exam - Neck Neck exam: Present: other (Improved active range of motion. Mild swelling and tenderness right lower neck) - Respiratory Respiratory exam: Absent: accessory muscle use, wheezes - Cardiovascular Cardiovascular exam: Present: regular rate and rhythm - GI/Abdominal GI/Abdominal exam: Absent: distended, firm - Extremities Exam Extremities exam: Present: normal inspection (Right shoulder: Improved active range of motion right upper extremity. Mild-mod tenderness to palpation to right sternoclavicular joint. Sensation is intact. Pulses 2+. Capillary refill brisk. Compartments are soft) - Expanded Left Upper Extremity General: Present: normal inspection (Minimal tenderness to palpation left acromioclavicular joint. Full active range of motion. Compartments are soft. Sensations intact. Pulses 2+) - Neurological Exam Neurological exam: Present: alert, oriented X3, CN II-XII intact - Psychiatric Psychiatric exam: Present: normal affect, normal mood - Skin Skin exam: Present: normal color Results - Labs CBC & BMP: 07/11/17 03:58 07/11/17 03:58 Lab Results: I have reviewed the past 24 hour labs - Diagnostic Findings Procedure: CT: image reviewed by me, report reviewed by me, X-ray: image reviewed by me, report reviewed by me Assessment and Plan (1) Septic arthritis of right sternoclavicular joint Status: Acute Assessment and plan: Discussed her condition and that based on her labs it appears that she is in physical exam findings, she is improving. Discussed her blood cultures. Discussed the consultation for interventional radiology to obtain a sample of fluid from either her neck or her sternoclavicular joint to determine the etiology and possibility of septic arthropathy Discussed that if she does have a abscess of her neck and/or septic arthropathy of her sternoclavicular joints, that this may need to be a combined surgical procedure with a team approach of a ear nose and throat surgeon, general surgeon , and orthopedics. Further treatment plan pending the results of the interventional radiology aspiration Continue medical management as per medicine Current Visit: Yes
--- NOTE | 2017-07-11 14:49 | Hospitalist Progress Note ---
Assessment and Plan (1) Septic arthritis of right sternoclavicular joint Status: Acute Assessment and plan: The patient is receiving [id number] IV antibiotics. We await the identity and sensitivities of this gram-positive coccus, and note that the PCR for MRSA was negative. I am uncertain the etiology of the patient's apparently infected sternoclavicular joint but I am concerned it could be related to epidural steroid injections which she is received in the past. She states her last cervical injection was in November 2016. I am going to order MRI scan of cervical thoracic and lumbar spines to rule out paraspinous abscess. We will continue present antibiotic coverage and look forward to consultation with Dr. Baca tomorrow. Current Visit: Yes Hospitalist: Subjective Interval history: This patient is admitted to the hospital with evidence of septicemia with gram- positive cocci. The patient has inflammation of bilateral sternoclavicular joints with worse stranding on the right on MR scan and possibly early mediastinitis is seen. The patient states that her symptoms are improving on present therapy including Zosyn and vancomycin. Micro testing shows PCR negative for MRSA. The patient states she sees some visual disturbance today which is new. She states that the wallpaper pattern seems to be scintigraphic. The patient denies hallucinations. The patient states she has not had these symptoms in the past. The patient has required doses of narcotic pain medication and antiemetic to treat her pain symptom. Exam - Constitutional Vitals: Period Temp Pulse Resp BP Sys/Douglas Pulse Ox Last 24 Hr 97.0 F-98.7 F 56-86 18-22 109-135/58-63 20-98 General appearance: mild distress - Respiratory Respiratory exam: Present: clear to auscultation bilaterally - Cardiovascular Cardiovascular exam: Present: regular rate and rhythm - GI/Abdominal GI/Abdominal exam: Present: normal bowel sounds Results - Labs CBC & BMP: 07/11/17 03:58 07/11/17 03:58 Lab Results: I have reviewed the past 24 hour labs
[2017-07-11] MEDS: MORPHINE 2 MG/1 ML SYRINGE IV PRN (16:40)
[2017-07-11] MEDS: DULoxetine 30 MG CAPSULE PO SCH (20:25)
[2017-07-11] MEDS ORDERED: NORTRIPTYLINE 10 MG CAPSULE PO SCH (21:00)
[2017-07-12] MEDS: VANCOMYCIN INJ 1,000 MG in SODIUM CHLORIDE 0.9% 250 ML IV SCH ×2 (03:40→16:25)
[2017-07-12] MEDS: PIPERACILLIN/TAZOBACTAM 3,375 MG in SODIUM CHLORIDE 0.9% 100 ML IV SCH ×2 (04:30→14:05)
[2017-07-12] MEDS: MORPHINE 2 MG/1 ML SYRINGE IV PRN (05:31)
[2017-07-12] MEDS: LEVOTHYROXINE 75 MCG TABLET PO SCH (06:25)
--- NOTE | 2017-07-12 07:23 | Orthopedic Progress Note ---
Orthopedics - Subjective Interval history: 71 yo female who has been admitted with a neck and sternoclavicular pain right greater than left, leukocytosis, elevated CRP, and a GPC bacteremia. She is set up for a SC aspiration this am. Generally, she is feeling better although this morning she is more uncomfortable. No numbness or tingling. She has been scheduled for an aspiration with interventional radiology today. She also has MRIs of her CTLS spine ordered. 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 Her has had a recent history of an MRSA abscess secondary to presumed insect bite. Patient has chronic neck and low back pain and history of fibromyalgia. She has been afebrile since admission. Exam shows active abduction and forward elevation to 90. She is diffusely tender across her shoulder girdle and right side of her neck. She is tender over her right sternoclavicular joint and distal sternocleidomastoid muscle. She has mild warmth, mild edema and very faint erythema. No obvious fluctuance or induration. She has multiple healing pustules around her right thumb and distal fingers which she states are from fire ant bites. The palpable radial pulse. She has full hand wrist range of motion. 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 Her CT scans were reviewed and show degenerative changes at her SC joints. Small fluid collections around bilateral sc joints, right greater than left. Her leukocytosis has improved. Her blood PCR is negative for MRSA. Impression: Possible right greater than left SC septic arthritis. Gram- positive bacteremia. Plan: Agree with infectious disease consultation and aspiration. Contemplate irrigation and debridement if she fails to respond to antibiotics. Exam - Constitutional Vitals: Period Temp Pulse Resp BP Sys/Douglas Pulse Ox Last 24 Hr 96.9 F-97.9 F 56-92 16-20 109-149/57-87 90-96 Results - Labs CBC & BMP: 07/12/17 07:36 07/11/17 03:58
[2017-07-12] MEDS: GABAPENTIN 600 MG TABLET PO SCH ×2 (07:41→08:53)
[2017-07-12] MEDS: TOLTERODINE LA 4 MG CAPSULE PO SCH ×2 (07:41→08:53)
[2017-07-12 07:44] LABS: Basophils # 0.1 10*3/uL (0.0-0.2); Basophils % 0.7 % (0.0-0.8); Eosinophils # 0.1 10*3/uL (0.0-0.87); Eosinophils % 0.7 % (0.00-10.9); Hematocrit 34.6 VOL% (35.7-47.0); Hemoglobin 11.5 GM/DL (12.0-16.0); Immature Granulocytes % 0.6 %; Immature Granulocytes Absolute 0.04 #; Lymphocytes # 0.9 10*3/uL (1.4-4.0); Lymphocytes % 13.4 % (21.3-54.2); Mean Corpuscular HGB Conc 33.2 GM/DL (32-36); Mean Corpuscular Hemoglobin 30 PG (27-34); Mean Corpuscular Volume 90.1 FL (87-102); Mean Platelet Volume 11.6 FL (9.6-12.0); Monocytes # 0.8 10*3/uL (0.11-0.8); Monocytes % 12.2 % (1.7-12.7); Neutrophils # 4.9 10*3/uL (1.4-7.4); Neutrophils % 72.4 % (38.7-73.9); Platelet Count 207 T/CUMM (130-400); Red Blood Count 3.84 MC/CUMM (3.8-5.5); Red Cell Distribution Width 13.6 % (9.3-17.3); White Blood Count 6.7 T/CUMM (4-12)
--- NOTE | 2017-07-12 08:34 | Hospitalist Progress Note ---
<Bety Chingda - Last Filed: 07/12/17 10:35> Assessment and Plan - Time spent with patient Time spent with patient: Less than 30 minutes (1) Septic arthritis of right sternoclavicular joint Status: Acute Assessment and plan: SC aspiration scheduled this a.m. per orthopedics. We will continue intravenous antibiotic coverage and rehydration as previously ordered. We will await orthopedics recommendation for further direction. Current Visit: Yes Hospitalist: Subjective Interval history: Patient seen and examined; chart reviewed. No significant overnight events reported per staff. Patient reports continuous pain affecting the right arm, neck, and chest wall. The patient is n.p.o. pending SC aspiration this a.m. Exam - Constitutional Vitals: Period Temp Pulse Resp BP Sys/Douglas Pulse Ox Last 24 Hr 96.9 F-97.9 F 56-92 16-20 109-169/57-87 90-96 General appearance: normal weight, mild distress - Head Head exam: Present: normal inspection, normocephalic, atraumatic - Eye Eye exam: Present: EOMI. Absent: conjunctival injection Pupils: Present: BRITTNEY, normal accommodation - ENT ENT exam: Present: normal exam, normal external ear exam, normal oropharynx - Neck Neck exam: Present: normal inspection, tenderness - Respiratory Respiratory exam: Present: clear to auscultation bilaterally. Absent: rales, rhonchi, stridor, wheezes - Cardiovascular Cardiovascular exam: Present: regular rate and rhythm. Absent: carotid bruit, diastolic murmur, gallop, JVD, rubs, systolic murmur - GI/Abdominal GI/Abdominal exam: Present: normal bowel sounds, soft - Extremities Exam Extremities exam: Present: normal inspection, normal capillary refill, full ROM. Absent: edema - Expanded Right Upper Extremity General: Present: normal inspection Shoulder exam: Present: normal inspection, tenderness Upper Arm exam: Present: tenderness Elbow exam: Present: normal inspection Forearm wrist exam: Present: normal inspection Neuro motor exam: Present: fingers 2-5 abduction intact Neurosensory exam: Present: 2-point discrimination, median nerve intact, radial nerve intact, ulnar nerve intact Vascular: Present: normal capillary refill. Absent: vascular compromise Left Upper Extremity General: Present: normal inspection Shoulder exam: Present: normal inspection Upper Arm exam: Present: normal inspection Elbow exam: Present: normal inspection Forearm wrist exam: Present: normal inspection Hand wrist exam: Present: normal inspection Neuro motor exam: Present: fingers 2-5 abduction intact Neurosensory exam: Present: 2-point discrimination Vascular: Present: brachial pulse, normal capillary refill. Absent: vascular compromise - Back Exam Back exam: Present: normal inspection - Neurological Exam Neurological exam: Present: alert, oriented X3, CN II-XII intact - Psychiatric Psychiatric exam: Present: normal affect, normal mood - Skin Skin exam: Present: normal color, warm, dry Results - Labs CBC & BMP: 07/12/17 07:36 07/12/17 07:36 Lab Results: I have reviewed the past 24 hour labs <Antione Gillis - Last Filed: 07/12/17 11:24> Hospitalist: Subjective Interval history: There been no significant changes since yesterday. She continues on her same antibiotics. She continues to experience pain requiring analgesic medications. She is scheduled today to undergo sternoclavicular joint aspiration, MRI of the cervical and thoracic spine, and consultation with infectious diseases. I will continue her present antibiotics at the present time. Exam - Constitutional Vitals: Period Temp Pulse Resp BP Sys/Douglas Pulse Ox Last 24 Hr 96.9 F-97.9 F 56-92 16-20 109-169/57-87 90-96 Results - Labs CBC & BMP: 07/12/17 07:36 07/12/17 07:36
[2017-07-12 08:35] LABS: Albumin 2.5 G/DL (3.4-5.0); Bilirubin,Total 0.5 MG/DL (0.2-1.0); Magnesium 2.2 MG/DL (1.8-2.4); Osmolality,Calculated 280.1 MOS/KG (273-304); Phosphorous 2.6 MG/DL (2.5-4.9); Potassium 3.7 MMOL/L (3.5-5.1); Total Protein 5.8 G/DL (6.4-8.3)
[2017-07-12] MEDS: ENOXAPARIN 40 MG/0.4 ML SYRINGE SUBCUT SCH (08:53)
--- NOTE | 2017-07-12 09:40 | History and Physical Update ---
Sedation H&P Update - Dictation Physical: refer to H&P completed by admitting physician - Sedation Plan for Sedation: minimal Patient Consent: Procedure disscussed with patient and patinet has consented., Risks and benefits were discussed with patient,including infection,, bleeding, injury to surrounding structures, seizure, temporary nerve, Patient understands and accepts potential risks/benefits and agrees to, proceed. ASA Class: II Airway Assessment: Class II: Soft palate, uvula, fauces visible
[2017-07-12] MEDS ORDERED: DIAZEPAM 5 MG TABLET PO ONE ×2 (09:47→09:50)
[2017-07-12] MEDS ORDERED: HYDROmorphone 2 MG/1 ML VIAL IV PRN (11:23)
--- NOTE | 2017-07-12 11:58 | Post Interventional Procedure ---
Pre-op diagnosis: Septic arthritis right sternoclavicular joint Post-op diagnosis: same Procedure: CT-guided needle placement right/CT-guided aspiration right sternoclavicular joint Radiologist: Gillian Oliva Anesthesia: local Specimens: other (small fluid sample sent to lab for gram stain, culture) Estimated blood loss: none Complications: none Condition: stable Description/Findings: A formal timeout was performed. Patient was placed supine on the CT table and vp clinical research imaging obtained. The ventral skin overlying the right sternoclavicular joint was prepped and draped in a sterile fashion. 5 cc 1% lidocaine was injected. Under CT fluoroscopic guidance, a 20-gauge guide needle was advanced into the joint by this radiologist. Captured CT images document needle placement. Multiple aspirations were performed. Less than 2 mL blood-tinged clear fluid was aspirated. Specimen was sent for Gram stain and culture/ sensitivity. The needle was removed. Patient tolerated the procedure well. No immediate complications were encountered. Impression: CT-guided aspiration right sternoclavicular joint Assessment and Plan - Time spent with patient Time spent with patient: Less than 30 minutes
--- NOTE | 2017-07-12 12:00 | CT Report ---
History: Septic arthritis right sternoclavicular joint Date: 07/12/2017 Study: CT-guided needle placement right/CT-guided aspiration right sternoclavicular joint Comparison exam: No previous similar Description: A formal timeout was performed. Patient was placed supine on the CT table and handwriting expert imaging obtained. The ventral skin overlying the right sternoclavicular joint was prepped and draped in a sterile fashion. 5 cc 1% lidocaine was injected. Under CT fluoroscopic guidance, a 20-gauge guide needle was advanced into the joint by this radiologist. Captured CT images document needle placement. Multiple aspirations were performed. Less than 2 mL blood-tinged clear fluid was aspirated. Specimen was sent for Gram stain and culture/sensitivity. The needle was removed. Patient tolerated the procedure well. No immediate complications were encountered. Impression: CT-guided aspiration right sternoclavicular joint. This CT exam was performed using one or more the following dose reduction techniques: Automated exposure control, adjustment of the MA and/or KV according to patient size, or use of iterative reconstruction technique. PROCEDURE INTERPRETED AT [facility] DEPARTMENT OF RADIOLOGY Final Report Signed by: Dr. Gillian Oliva
--- NOTE | 2017-07-12 12:26 | Discharge Summary ---
Hospital Course - Hospital Course Hospital Course: Ms. Alvarez is a 71 year old female who presents with 3 days of right sided sharp neck pain with radiations to her right scapular area, right side of chest , and right arm. Pain is intermittent and occurs with movement. She notes some SOB/wheezing/non productive cough/fevers but no chills. Fever reported up to 100.9. Grandchildren have runny nose but nothing out of the ordinary. She has been having pain and difficulty swallowing since this timeframe as well. Odynophagia can occur with saliva/food/liquids. She denies any drooling. She further denies any abdominal pain/n,v/diarrhea. CTA chest showed findings suggestive of inflammatory or septic arthritis of the bilateral sternoclavicular joints, R>L. She denies any recent trauma or injury. She has not had these type of symptoms before. While in the ER, she was started on antibiotics. She was seen in consultation by orthopedics and gastroenterology. She was treated with intravenous antibiotics including vancomycin. She underwent attempted aspiration of the right sternoclavicular joint which was unsuccessful. At the family's request, she was transferred to [facility]. Diagnosis - Discharge Diagnosis (1) Septic arthritis of right sternoclavicular joint Status: Acute (2) Odynophagia Status: Acute Discharge Plan - Discharge Data Disposition: Disch/Xfer-[facility] Term Hos Condition at Discharge: Stable - Discharge Medications New Albuterol/Ipratropium Neb [Duoneb] 3 ml RESP TX RT Q4H PRN PRN Reason: Shortness Of Breath/Wheezing Enoxaparin [Lovenox] 40 mg SUBCUT Q24H syringe Piperacillin/Tazobactam [Zosyn] 3,375 mg IV Q8H vial Vancomycin Inj 1,000 mg IV Q12H vial amLODIPine [Norvasc] 5 mg PO BEDTIME tablet HYDROcodone/ACETAMIN 5-325 [Delmar 5-325] 1 tablet PO Q4H PRN tablet PRN Reason: Pain Moderate (4-7) Continue Nortriptyline HCl 10 mg PO BEDTIME Amlodipine Besylate 5 mg PO BEDTIME Tolterodine LA [Detrol LA] 4 mg PO BEDTIME SUMAtriptan TAB [Imitrex Tab] 100 mg PO DIRECTED Levothyroxine Tab [Synthroid Tab] 75 mcg PO DAILY@0700 Estradiol [Vagifem] 10 mcg VAG DIRECTED Duloxetine HCl [Cymbalta] 60 mg PO QAM DULoxetine [Cymbalta] 30 mg PO 1200 Gabapentin Cap/Tab [Neurontin Cap/Tab] 600 mg PO BEDTIME - Follow Up or Referral - Forms/Instructions Exam - Constitutional Vitals: Period Temp Pulse Resp BP Sys/Douglas Pulse Ox Last 24 Hr 96.9 F-98.3 F 45-92 16-20 115-169/56-87 90-97 Discharge Results Procedures and tests throughout hospitalization: Pending Orders 07/10/17 04:00 Blood Culture Stat 07/12/17 04:00 MR cervical spine wo con IN AM MR lumbar spine wo con IN AM MR thoracic spine wo con IN AM 07/12/17 11:00 Body Fluid Cult and Gram Stain Routine 07/12/17 16:00 Vancomycin,Trough Timed 07/13/17 04:00 CBC [Comp Blood Count Auto Diff] IN AM CMP [Comprehensive Metabolic Panel] IN AM Magnesium IN AM Phosphorous IN AM Labs on day of discharge: Labs from last 24 hours 07/12/17 07/12/17 07:36 07:36 WBC 6.7 D RBC 3.84 Hgb 11.5 L Hct 34.6 L MCV 90.1 MCH 30 MCHC 33.2 RDW 13.6 Plt Count 207 MPV 11.6 Neut % (Auto) 72.4 Lymph % (Auto) 13.4 L Carlisle % (Auto) 12.2 Eos % (Auto) 0.7 Baso % (Auto) 0.7 Neut # (Auto) 4.9 Lymph # (Auto) 0.9 L Carl[place] # (Auto) 0.8 Eos # (Auto) 0.1 Baso # (Auto) 0.1 Immature Gran % 0.6 Nucleated RBC % 0.0 Immature Gran # 0.04 Nucleated RBCs # 0.00 Immature Plt Fraction 0.0 Sodium 142 Potassium 3.7 Chloride 107 Carbon Dioxide 31 Anion Gap 7.7 BUN 7 Creatinine 0.60 GFR Calculation 92 BUN/Creatinine Ratio 11.00 Glucose 90 Calculated Osmolality 280.1 Calcium 8.0 L Phosphorus 2.6 Magnesium 2.2 Total Bilirubin 0.50 AST 27 ALT 48 Alkaline Phosphatase 138 H Total Protein 5.8 L Albumin 2.5 L Globulin 3.3 Albumin/Globulin Ratio 0.7 L Preliminary micro results at discharge 07/10/17 04:00 Blood Culture - Preliminary Blood Gram Positive Cocci 07/10/17 03:48 Blood Culture - Preliminary Blood Gram Positive Cocci DS: Provider Date of admission: 07/10/17 06:54 Primary care physician: . No PCP Attending physician on admission: Amanda Rogel MD Consults: 07/10/17 06:38 Consult to Physician [CONS] Routine Comment: evaluate for infection of sternoclavicular joint Consulting Provider: Binh Wilson When should Consulting Provider be notified: In am Person Notified: dr wilson Date Notified: 07/10/17 Time Notified: 08:30 07/10/17 06:40 Consult to Physician [CONS] Routine Comment: odynophagia/dysphagia Consulting Provider: Keira Pruett When should Consulting Provider be notified: In am Person Notified: dr hernandez Date Notified: 07/10/17 Time Notified: 08:20 Consult to Physician [CONS] Routine Comment: poss septic arthritis of sternoclavicular joint Consulting Provider: Raeann Tubbs When should Consulting Provider be notified: In am Person Notified: DARREL Date Notified: 07/12/17 Time Notified: 08:49 07/10/17 06:44 Consult to Pharmacy [CONS] Routine Reason for Pharmacy Consult: Dose/Manage Vancomycin 07/12/17 12:20 Consult to Case Mgmt/Social Srvs [CONS] Routine Reason for Case Mgmt/Social Srvs: Other Discharge Planning Consult Comment: Transfer to [facility] Discharging clinician: Antione Gillis
[2017-07-12] MEDS ORDERED: ESTRADIOL 10 MCG VAG SCH (12:30)
--- NOTE | 2017-07-12 14:19 | Magnetic Resonance Report ---
Exam: MRI thoracic spine without contrast Indication: 71-year-old female with MRSA sepsis and severe back pain Comparison: MRI lumbar spine dated June 25, 2015 Technique: Multisequence, multiplanar imaging of the thoracic spine was performed without contrast Findings: Thoracic kyphosis, vertebral body heights and marrow signal are preserved. Cord signal is normal. No intra or extradural abnormalities. Disc spaces are well maintained. No soft tissue abnormalities. Impression: 1. Unremarkable noncontrast MRI thoracic spine PROCEDURE INTERPRETED AT [facility] DEPARTMENT OF RADIOLOGY Final Report Signed by: Luis Carlos Haq
--- NOTE | 2017-07-12 14:27 | Magnetic Resonance Report ---
Exam: MRI lumbar spine without contrast Indication: 71-year-old female with MRSA sepsis and severe back pain Comparison: MRI lumbar spine dated June 25, 2015 Technique: Multisequence, multiplanar imaging of the lumbar spine was performed without contrast Findings: Lumbar lordosis, vertebral body heights and marrow signal are preserved. Benign hemangiomas noted at L3 and L5. Cord signal is normal. Cord terminates to the T12-L1 level. No intra or extradural abnormalities. Generalized loss of disc space height with mild desiccation. L1-L2:: Unremarkable L2-L3: Slight annular disc bulge and hypertrophic endplate changes. Mild facet arthrosis. No significant central or foraminal stenosis L3-L4: Slight annular disc bulging effaces the ventral thecal sac. Mild facet arthrosis. No significant spinal or central stenosis L4-L5: Annular disc bulging and hypertrophic endplate changes. Moderate facet arthrosis. No significant central or foraminal stenosis. Significant motion artifact degrades image quality, correlate with history for partial laminectomy. L5-S1: Annular disc bulge and hypertrophic changes. No significant foraminal stenosis Impression: 1. No acute to explain patient's symptoms. 2. Multilevel degenerative changes as detailed above, not significantly changed in the interim PROCEDURE INTERPRETED AT [facility] DEPARTMENT OF RADIOLOGY Final Report Signed by: Luis Carlos Haq
--- NOTE | 2017-07-12 14:34 | Magnetic Resonance Report ---
Exam: MRI cervical spine without contrast Indication: 71-year-old female with MRSA sepsis and severe back pain Comparison: MRI cervical spine dated June 25, 2015 Technique: Multisequence, multiplanar imaging of the cervical spine was performed without contrast Findings: Image quality is degraded secondary to motion artifact Cervical lordosis, vertebral body heights and marrow signal are preserved. Mild endplate edema at C5-C6: Cord signal is normal. No intra or extradural abnormalities. Disc spaces are fairly well maintained. C2-C3: Unremarkable C3-C4: Right uncovertebral disc osteophyte complex with mild facet arthrosis results in mild right foraminal narrowing C4-C5: Asymmetric right facet arthrosis. No central or foraminal stenosis C5-C6: Posterior disc bulging with uncovertebral hypertrophy deforms the ventral thecal sac resulting and mild central stenosis with canal AP diameter measuring 0.9 cm. Mild to moderate left foraminal narrowing C6-C7: Mild posterior disc bulging with hypertrophic endplate changes performed the ventral thecal sac. No significant central or foraminal stenosis C7-T1: Unremarkable No soft tissue abnormalities. Impression: 1. Early degenerative disc changes as described. No acute findings PROCEDURE INTERPRETED AT [facility] DEPARTMENT OF RADIOLOGY Final Report Signed by: Luis Carlos Haq
[2017-07-12 15:58] VITALS: BP 131/71
[2017-07-12] MEDS ORDERED: amLODIPine 5 MG TABLET PO SCH (21:00)
[2017-07-13] MEDS ORDERED: DULoxetine 30 MG CAPSULE PO SCH (09:00)
--- NOTE | 2017-07-26 08:08 | Physician Query Form ---
CLICK EDIT DOCUMENT TO SELECT QUERY ANSWER --> OK --> SIGN Kianna Mcfarlane RN Clinical Pottery Striper W) [phone] (f) [phone] [email or web address] PROVIDERS: Make your selection(s) from the choices in EACH section by typing an "x" and enter comments in the comment section. Please use your independent medical judgment in providing your response. This request does not imply that any particular answer is desired or expected. CLINICAL INDICATORS: (Providers should not edit this section) The below diagnosis was documented in the record, but is not consistently noted in subsequent documentation. Diagnosis: Pneumonia Based on documentation of "RLL pneumonia" in the H&P, WBC=16.0, CT Chest report states "Right lower lobe atelectasis versus early infectious process". Pt. treated with IV Zosyn and Vancomycin. Please clarify the following: ( x) The above diagnosis was monitored, evaluated, and/or treated and is a confirmed diagnosis ( ) The above diagnosis was ruled out ( ) Other, please specify: ( ) Clinically unable to determine COMMENTS: PLEASE ALSO DOCUMENT RESPONSE IN PROGRESS NOTES AND/OR DISCHARGE SUMMARY Use of terms such as suspected, likely, or probable (associated with a specific diagnosis that is being evaluated, monitored, or treated as if it exists) are acceptable and can be restated in the discharge summary if not ruled out. MTDD
--- NOTE | 2017-07-26 08:23 | Physician Query Form ---
CLICK EDIT DOCUMENT TO SELECT QUERY ANSWER --> OK --> SIGN Kianna Mcfarlane RN Clinical Floor Layer Apprentice W) [phone] (f) [phone] [email or web address] PROVIDERS: Make your selection(s) from the choices in EACH section by typing an "x" and enter comments in the comment section. Please use your independent medical judgment in providing your response. This request does not imply that any particular answer is desired or expected. CLINICAL INDICATORS: (Providers should not edit this section) Pt. admitted with septic arthritis of right sternoclavicular joint. Based on documentation of "This patient is admitted to the hospital with evidence of septicemia with gram-positive cocci". WBC=16.0, Temp of 96.5. Pt. treated with IV Zosyn and Vancomycin. Based on the above, could you clarify the appropriate diagnosis, if significant , that supports the above abnormalities and additional evaluation, monitoring, and/or treatment rendered: ( ) Pt. treated for septic arthritis of right sternoclavicular joint only ( x) Pt.treated for septic arthritis of right sternoclavicular joint and septicemia ( ) Pt. treated for septic arthritis of right sternoclavicular joint and bacteremia ( ) Other, please specify: ( ) Clinically unable to determine COMMENTS: PLEASE ALSO DOCUMENT RESPONSE IN PROGRESS NOTES AND/OR DISCHARGE SUMMARY Use of terms such as suspected, likely, or probable (associated with a specific diagnosis that is being evaluated, monitored, or treated as if it exists) are acceptable and can be restated in the discharge summary if not ruled out. MTDD
== END 2017-07-12 16:15 | disposition hospice, home (50) | DRG 871 ==
LOC: N.ED 23:39 → N.EDINP 07-10 06:54 → SUATTDRO 07-10 06:54 → N.EDINP 07-10 07:28 → N.2E 07-10 07:44
PROVIDERS: ADMIT Internal Medicine